=== PATIENT | female | born 1980 | race African-American/Black ===

== ENCOUNTER → 2016-10-14 | Outpatient (CLI) | payer BC ==
--- NOTE | 2016-10-14 16:26 | RAD ---
Exam performed: CT abdomen pelvis without contrast. History: Left lower quadrant pain today. Date of service: 10/14/16. Comparison: None available Technique: Contiguous helical acquisitions are obtained through the abdomen and pelvis without IV contrast. Sagittal and coronal reformatted images are obtained and reviewed. Findings: The lung bases are essentially clear. The visualized heart is normal. Lack of IV contrast limits evaluation of abdominal viscera, however the liver, spleen and pancreas appear grossly normal. Gallbladder is distended. Both adrenal glands and bilateral kidneys are normal in size. Tiny nonobstructing 2 mm calculus is seen in the right mid pole. There is no hydronephrosis. Aorta is normal in caliber without aneurysm. No retroperitoneal or mesenteric lymphadenopathy. Small and large bowel loops are grossly normal. Visualized appendix is unremarkable. No inflammatory changes in the right lower quadrant. There is scattered stool in the colon. The urinary bladder is decompressed. The uterus is rather bulky. There is perhaps a small 2 to 3 cm left ovarian cyst, likely physiological There is small amount of free fluid in the posterior cul-de-sac. Interrogation of bone windows is grossly unremarkable. Impression: 1. Tiny 2 mm nonobstructing catheter is in the right mid pole. 2. No acute intra-abdominal or pelvic process detected. 3. Appendix is normal. PQRS Compliance Statement: One or more of the following individualized dose reduction techniques were utilized for this examination: 1. Automated exposure control 2. Adjustment of the mA and/or kV according to patient size 3. Use of iterative reconstruction technique
== END | disposition home or self-care (01) ==
LOC: CT 14:37
PROVIDERS: ATTEND Nurse Practitioner Family
DX: R10.32 Left lower quadrant pain (principal)
CPT/HCPCS: 74176

== ENCOUNTER 2016-10-17 16:50 | Inpatient (IN) | payer BC ==
[~2016-10-17] VITALS: Ht 154.9 cm; Wt 51.8 kg
--- NOTE | 2016-10-17 18:56 | NUR ---
The patient, ZULEIKA ROSENTHAL, 35 y/o, F admitted by CLINTON SINGLETON MD at 1855, was given written information regarding hospital policies, unit procedures and contact persons.
[2016-10-17 19:03] VITALS: BP 109/70
[2016-10-17] MEDS ORDERED: ONDANSETRON ODT 4 MG TAB.RAPDIS PO PRN (19:15)
[2016-10-17] MEDS: MORPHINE SULFATE 2 MG/ML DISP.SYRIN. IV PRN (19:30)
[2016-10-17 19:37] LABS: BASO % 1 % (0-3); EOS # 0.2 x10^3/uL (0.0-0.7); EOS % 5 % (0-3); HEMATOCRIT 32.1 % (36.0-47.0); LYMPH # 1.3 x10^3/uL (1.0-4.8); LYMPH % 29 % (24-48); MEAN CORPUSCULAR HEMOGLOBIN 31 pg (25-35); MEAN CORPUSCULAR HGB CONC 34 g/dL (31-37); MEAN CORPUSCULAR VOLUME 91 fL (79-100); MONO # 0.3 x10^3/uL (0.0-1.1); MONO % 7 % (0-9); NEUT # 2.6 x10^3uL (1.8-7.7); NEUT % 58 % (31-73); PLATELET COUNT 329 x10^3/uL (140-400); RED BLOOD COUNT 3.54 x10^6/uL (3.50-5.40); RED CELL DISTRIBUTION WIDTH 12.4 % (11.5-14.5); WHITE BLOOD COUNT 4.4 x10^3/uL (4.0-11.0)
[2016-10-17 19:41] LABS: ALBUMIN 3.1 g/dL (3.4-5.0); ALBUMIN/GLOBULIN RATIO 0.7 (1.0-1.7); CALCIUM 8.4 mg/dL (8.5-10.1); CREATININE 0.8 mg/dL (0.6-1.0); POTASSIUM 3.8 mmol/L (3.5-5.1); TOTAL BILIRUBIN 0.2 mg/dL (0.2-1.0); TOTAL PROTEIN 7.3 g/dL (6.4-8.2)
[2016-10-17] MEDS ORDERED: IV NORMAL SALINE 100ML 100 ML ONE (20:50)
[2016-10-18] MEDS: MORPHINE SULFATE 2 MG/ML DISP.SYRIN. IV PRN ×4 (02:29→17:36)
[2016-10-18 05:32] VITALS: BP 87/47
[2016-10-18 07:01] LABS: BACTERIA,URINE 0 /HPF (0-FEW); BILIRUBIN,URINE NEG (NEG); CLARITY,URINE CLEAR; COLOR,URINE YELLOW; GLUCOSE,URINE NEG (NEG); NITRITE,URINE NEG (NEG); RBC,URINE RARE /HPF (0-2); SQUAMOUS EPITHELIAL CELL,UR FEW /LPF; UROBILINOGEN,URINE 0.2 mg/dL (0.2 mg/dL); WBC,URINE 0 /HPF (0-4)
[2016-10-18 11:00] VITALS: BP 98/67
[2016-10-18] MEDS: PANTOPRAZOLE 40 MG TABLET. PO SCH (11:13)
[2016-10-18] MEDS: IV NORMAL SALINE 1,000ML 1,000 ML IV SCH ×2 (11:14→23:50)
[2016-10-18] MEDS: SUCRALFATE 1 GM/10 ML ORAL.SUSP. PO SCH ×3 (11:36→20:34)
[2016-10-18 15:10] VITALS: BP 107/75
[2016-10-18 17:07] LABS: THYROID STIM HORMONE (TSH) 0.282 uIU/mL (0.358-3.740)
[2016-10-18 18:40] VITALS: BP 101/69
[2016-10-18] MEDS: FAMOTIDINE 20 MG TABLET PO SCH (20:33)
[2016-10-19 06:03] VITALS: BP 92/62
[2016-10-19] MEDS: SUCRALFATE 1 GM/10 ML ORAL.SUSP. PO SCH ×4 (07:13→19:57)
[2016-10-19] MEDS: PANTOPRAZOLE 40 MG TABLET. PO SCH (07:14)
--- NOTE | 2016-10-19 08:37 | PN ---
DATE: 10/18/2016 SUBJECTIVE: A 35-year-old female in with pancreatitis, still having fair amount of pain in her mid and epigastric area, also some pain in the paraspinous muscles. Otherwise, the patient is alert and oriented x 3. She is feeling somewhat better. OBJECTIVE: VITAL SIGNS: Blood pressure 100/70, respiratory rate 20, pulse 80, afebrile. GENERAL: The patient is alert and oriented. LUNGS: Clear. CARDIOVASCULAR: Stable. ABDOMEN: Soft. Definite tenderness in the epigastric area, primarily over the head of the tail of the pancreas. IMPRESSION: Acute pancreatitis. PLAN: Continue with resting, IV fluids. Her TSH is low. She may have hyperthyroidism maybe contributing to this situation, will have to work it up as an outpatient perhaps. CLINTON SINGLETON MD DR: CHRISTIAN/nanda JOB#: [id number] / [id number]
[2016-10-19] MEDS: FAMOTIDINE 20 MG TABLET PO SCH ×2 (08:39→19:57)
[2016-10-19] MEDS: MORPHINE SULFATE 2 MG/ML DISP.SYRIN. IV PRN ×5 (09:11→20:04)
[2016-10-19 11:07] VITALS: BP 107/78
[2016-10-19 12:39] LABS: ALBUMIN 2.8 g/dL (3.4-5.0); ALBUMIN/GLOBULIN RATIO 0.8 (1.0-1.7); CALCIUM 8.1 mg/dL (8.5-10.1); CREATININE 0.6 mg/dL (0.6-1.0); GFR 139.3; POTASSIUM 4.4 mmol/L (3.5-5.1); TOTAL BILIRUBIN 0.2 mg/dL (0.2-1.0); TOTAL PROTEIN 6.1 g/dL (6.4-8.2)
[2016-10-19 12:47] LABS: BASO % 1 % (0-3); EOS # 0.2 x10^3/uL (0.0-0.7); EOS % 5 % (0-3); HEMOGLOBIN 9.9 g/dL (12.0-15.5); LYMPH % 30 % (24-48); MEAN CORPUSCULAR HEMOGLOBIN 31 pg (25-35); MEAN CORPUSCULAR HGB CONC 34 g/dL (31-37); MEAN CORPUSCULAR VOLUME 91 fL (79-100); MONO # 0.3 x10^3/uL (0.0-1.1); MONO % 10 % (0-9); NEUT # 1.8 x10^3uL (1.8-7.7); NEUT % 54 % (31-73); PLATELET COUNT 277 x10^3/uL (140-400); RED BLOOD COUNT 3.18 x10^6/uL (3.50-5.40); RED CELL DISTRIBUTION WIDTH 12.2 % (11.5-14.5); WHITE BLOOD COUNT 3.3 x10^3/uL (4.0-11.0)
--- NOTE | 2016-10-19 14:23 | RAD ---
Examination: Acute abdomen series History: History of abdominal pain Comparison: None available Findings: The cardiomediastinal silhouette grossly appears unremarkable. There is no acute infiltrate or visualized pneumothorax identified. No evidence of free air noted under the hemidiaphragm. The bowel gas pattern appears unremarkable. Impression: 1. No acute cardiopulmonary findings. 2. Unremarkable bowel gas pattern.
[2016-10-19] MEDS: IV NORMAL SALINE 1,000ML 1,000 ML IV SCH (17:36)
[2016-10-19 19:59] VITALS: BP 102/76
[2016-10-19] MEDS ORDERED: BISACODYL 10 MG SUPP.RECT PR ONE (20:00)
[2016-10-19 22:27] VITALS: BP 118/76
[2016-10-20] MEDS: IV NORMAL SALINE 1,000ML 1,000 ML IV SCH (02:06)
[2016-10-20] MEDS: MORPHINE SULFATE 2 MG/ML DISP.SYRIN. IV PRN ×2 (05:44→08:12)
[2016-10-20 05:46] VITALS: BP 106/66
[2016-10-20 06:21] LABS: AMYLASE 115 U/L (25-115); LIPASE 823 U/L (73-393)
[2016-10-20] MEDS: PANTOPRAZOLE 40 MG TABLET. PO SCH (07:43)
[2016-10-20] MEDS: SUCRALFATE 1 GM/10 ML ORAL.SUSP. PO SCH ×2 (07:43→11:47)
[2016-10-20] MEDS: FAMOTIDINE 20 MG TABLET PO SCH (07:44)
--- NOTE | 2016-10-20 08:15 | NUR ---
patient ate cream of wheat and drank orange juice. Continues to have pain rated 7/10. Gave PRN morphine per order for pain and will continue to monitor.
[2016-10-20 11:11] VITALS: BP 112/76
[2016-10-20 11:13] VITALS: BP 112/76
--- NOTE | 2016-10-20 12:13 | NUR ---
Patient transferred to [place] via EMS. Patient discharged from unit on [facility] at 1215. Report called to Katarzyna on .
[2016-10-22 20:08] LABS: ANA INTERP Negative (.)
== END 2016-10-20 12:16 | disposition short-term general hospital (02) | DRG 689 ==
LOC: ICU 18:40
PROVIDERS: ADMIT Family Medicine; ATTEND Family Medicine
DX: N39.0 Urinary tract infection, site not specified (principal); K85.90 Acute pancreatitis without necrosis or infection, unspecified; R31.9 Hematuria, unspecified; N83.202 Unspecified ovarian cyst, left side; N20.0 Calculus of kidney; Z91.041 Radiographic dye allergy status
CPT/HCPCS: 36415; 74022; 80053; 80061; 81001; 82150; 83540; 83550; 83605; 83690; 84443; 85027; 87040; 87641; J0696; J2270; Q0162; J7030

== ENCOUNTER → 2018-07-08 | Outpatient (CLI) | payer BC ==
[~2018-07-08] MED LIST: IOHEXOL 240 MG/ML 50ML VIAL. ONE
[2018-07-08] MEDS: IOHEXOL 300 MG/ML 75 ML VIAL. IV ONE (11:23)
--- NOTE | 2018-07-08 15:25 | RAD ---
PQRS Compliance Statement: One or more of the following individualized dose reduction techniques were utilized for this examination: 1. Automated exposure control 2. Adjustment of the mA and/or kV according to patient size 3. Use of iterative reconstruction technique CT ABD PELV W/ORAL IV CONTRAST Clinical Indication: LUQ PAIN, HX OF PANCREATITIS. Comparison: CT abdomen and pelvis without contrast October 14, 2016. Technique: Helical CT imaging of the abdomen and pelvis is performed after 75 cc of Omnipaque 300 IV contrast. Oral contrast also given. Findings: Lung bases are clear. Cardiac size normal. Bilateral breast implants redemonstrated. Liver, gallbladder, common bile duct, spleen, adrenal glands, and abdominal aorta are normal. Kidneys enhance symmetrically, no hydronephrosis. Pancreas is homogeneous. No peripancreatic inflammation or fluid collection. Small cortical cyst upper pole right kidney. Stomach unremarkable. No dilated small bowel. No colon wall thickening is seen. Moderate colon stool volume. Appendix is not identified, no secondary signs of appendicitis. Urinary bladder is normal. Anteverted uterus. There are bilateral fallopian tube occlusion devices. The cornual portion of the right device is intact. The distal portion of the device is just lateral but separate and the device may be fractured. Finding is stable. There is prominent draining right gonadal vein. There is trace pelvic free fluid, probably physiologic. No acute bone abnormality. IMPRESSION: 1. No acute abdominal or pelvic abnormality. 2. Stable findings of right fallopian tube occlusion device as described above. 3. Trace pelvic free fluid, probably physiologic. Electronically signed by: Eren Kent MD (07/08/2018 3:21 PM) [id number]
== END | disposition home or self-care (01) ==
LOC: CT 10:05
PROVIDERS: ATTEND Family Medicine
DX: N28.1 Cyst of kidney, acquired (principal); K85.00 Idiopathic acute pancreatitis without necrosis or infection; E05.90 Thyrotoxicosis, unspecified without thyrotoxic crisis or storm; B96.81 Helicobacter pylori [H. pylori] as the cause of diseases classified elsewhere; Z91.041 Radiographic dye allergy status
CPT/HCPCS: 74177; Q9966; Q9967

== ENCOUNTER → 2019-09-13 | Outpatient (CLI) | payer BC | END | disposition home or self-care (01) | LOC: LAB 13:25 | PROVIDERS: ATTEND Nurse Practitioner Women's Health | DX: Z11.3 Encounter for screening for infections with a predominantly sexual mode of transmission (principal) | CPT/HCPCS: 86592; 86703; 86803 ==